=== PATIENT | female | born 1990 | race Caucasian/White ===

== ENCOUNTER 2019-08-22 09:55 | Emergency (ER) | payer SELFPAY ==
[2019-08-22 10:05] VITALS: BP 155/95; PULSE 105; TEMP 98.8; BMI 28.3
[2019-08-22] MEDS ORDERED: KETOROLAC TROMETHAMINE 60 MG/2 ML VIAL IM ONE (12:26)
[2019-08-22] MEDS ORDERED: KETOROLAC TROMETHAMINE 60 MG/2 ML VIAL ONE (12:33)
--- NOTE | 2019-08-22 13:42 | PDOC ---
History of Present Illness - General Chief Complaint: Injury Stated Complaint: SLIP AND FALL Time Seen by Provider: 08/22/19 11:11 - History of Present Illness Initial Comments: 08/22/19 13:40 29-year-old female with past medical history of asthma presents for evaluation of lower back pain after fall last week. She states she fell down steps hitting her back into the step that she fell on. She complains of low back pain without loss of bowel or bladder function saddle paresthesias or systemic symptoms. Past History - Past Medical History Allergies/Adverse Reactions: Allergies Allergy/AdvReac Type Severity Reaction Status Date / Time No Known Allergies Allergy Verified 08/22/19 10:05 Home Medications: Ambulatory Orders Cyclobenzaprine HCl [Flexeril 10 mg] 10 mg PO HS PRN #10 tablet 08/22/19 Ibuprofen [Motrin -] 600 mg PO TID #30 tablet 08/22/19 Asthma: Yes COPD: No Other medical history: THALASEMIA [employer] - Immunization History Immunization Up to Date: Yes - Psycho Social/Smoking Cessation Hx Smoking History: Current every day smoker Have you smoked in the past 12 months: Yes Number of Cigarettes Smoked Daily: 8 Information on smoking cessation initiated: No Hx Alcohol Use: No Drug/Substance Use Hx: No Review of Systems - Review of Systems Musculoskeletal: Yes: Back Pain *Physical Exam - Vital Signs Last Vital Signs Temp Pulse Resp BP Pulse Ox 98.8 F 105 H 18 155/95 98 08/22/19 10:00 08/22/19 10:00 08/22/19 10:00 08/22/19 10:00 08/22/19 10:00 - Physical Exam 08/22/19 13:41 Lumbar spine skin color and temperature normal. There is a fading area of ecchymosis at the left flank. Abdomen is soft and nontender. Mild midline tenderness and paralumbar musculature spasm and tenderness 5 out of 5 strength bilateral lower extremities without gross sensorimotor deficits neurovascular intact. Thighs and calves are soft and nontender. ED Treatment Course - ADDITIONAL ORDERS Additional order review: Laboratory Results 08/22/19 11:30 Urine HCG, Qual Negative - RADIOLOGY Radiology Studies Ordered: Category Date Time Status LUMBAR SPINE CT W/O CONTRAST [CT] Stat CT Scan 08/22/19 12:25 Completed PELVIS [RAD] Stat Radiology 08/22/19 12:10 Taken SPINE-LUMBAR SACRAL [RAD] Stat Radiology 08/22/19 12:10 Taken - Medications Given in the ED: ED Medications Discontinued Medications Generic Name Dose Route Start Last Admin Trade Name Ann PRN Reason Stop Dose Admin Ketorolac Tromethamine 60 mg 08/22/19 12:26 08/22/19 12:36 Toradol Injection - IM 08/22/19 12:27 60 mg ONCE ONE Administration Medical Decision Making - Medical Decision Making 08/22/19 13:41 X-rays of the lumbar spine show a questionable fracture at the posterior aspect of L5. CAT scan is negative for fracture. Motrin and Flexeril follow-up with neurosurgery Discharge - Discharge Information Problems reviewed: Yes Clinical Impression/Diagnosis: Back pain Condition: Stable Disposition: HOME - Admission No - Additional Discharge Information Prescriptions: Cyclobenzaprine HCl [Flexeril 10 mg] 10 mg PO HS PRN #10 tablet PRN Reason: Muscle Spasms Ibuprofen [Motrin -] 600 mg PO TID #30 tablet - Follow up/Referral Referrals: Doni Ho MD, [facility] [Staff Physician] - - Patient Discharge Instructions Additional Instructions: Please take the Motrin and Flexeril as directed for pain. You may supplement Tylenol in addition to this medication. Return to the emergency room for worsening symptoms and without fail follow-up with neurosurgery in 2 to 3 days for further evaluation and treatment options. - Post Discharge Activity Work/Back to School Note: Back to Work
== END 2019-08-22 14:00 | disposition home or self-care (01) ==
LOC: JERFT 09:55
PROC: 3E0233Z Introduction of Anti-inflammatory into Muscle, Percutaneous Approach (ICD-10-PCS; principal; 2019-08-22)
DX: M54.5 Low back pain (principal); S30.0XXA Contusion of lower back and pelvis, initial encounter; W10.8XXA Fall (on) (from) other stairs and steps, initial encounter; Y93.89 Activity, other specified; Y92.89 Other specified places as the place of occurrence of the external cause; Y99.8 Other external cause status
CPT/HCPCS: 72100-TC-FY; 72131-TC; 72170-TC-FY; 84703; 99282-25